=== PATIENT | male | born 1970 | race Caucasian/White ===

== ENCOUNTER 2021-05-09 10:19 | Emergency (ER) | payer OTHER, SELFPAY ==
--- NOTE | ~2021-05-09 | XR_ITS ---
EXAMINATION: XR chest 2V EXAM DATE: 05/09/2021 10:45 INDICATION: Cough x 1 mo, fever last P.M. TECHNIQUE: Frontal and lateral projections of the chest obtained and reviewed. There is no prior colleen dy for comparison. FINDINGS: The lungs are clear. There are no pleural effusions. The cardiomediastinal silhouette is within normal limits. There is no pneumothorax suspected. The bones and soft tissues are unremarkab le. IMPRESSION: No acute cardiopulmonary findings. Reviewed, dictated and finalized at location A. HIC TECHNICIAN
[2021-05-09 10:24] VITALS: BP 121/69; PULSE 132; RESP 16; TEMP 37.6; O2SAT 98
--- NOTE | 2021-05-09 10:29 | ED.URI ---
HPI - URI/Sore Throat General Chief Complaint: Upper Respiratory Infection Stated Complaint: Cough Source: patient Mode of arrival: ambulatory Limitations: no limitations History of Present Illness HPI Narrative: 50-year-old male presenting for complaint of nonproductive cough for 1 month. He endorses new onset of fever last night of 101. Denies cp, shortness of breath, wheezing, fatigue, body aches, nausea, vomiting, diarrhea. Has been taking Mucinex for symptoms. He did receive the [employer] [place] COVID-vaccine in 2019. He has not had a booster. Denies sick contacts. MD elicited complaint: cough Related Data Allergies Allergy/AdvReac Type Severity Reaction Status Date / Time prochlorperazine Allergy Severe Muscle Verified 04/12/20 13:29 [From Compazine] Spasms clindamycin Allergy Mild Rash Verified 04/12/20 13:29 Review of Systems Review of Systems: CONSTITUTIONAL: Endorses Fever, Denies malaise, chills, sweats EYES: Denies visual changes, redness, or discharge. ENT: Reports rhinorrhea, congestion, sinus pain denies otalgia and sore throat. CARDIOVASCULAR: Denies chest pain, palpitations, or edema. RESPIRATORY: Reports cough, post nasal drainage. Denies dyspnea. GASTROINTESTINAL: Denies abdominal pain, nausea, vomiting, diarrhea SKIN: Denies rash or itching. MUSCULOSKELETAL: Denies myalgia. NEUROLOGIC: Denies headache. [facility] Past Medical History Medical History Chronic sinusitis, unspecified Closed right hand fracture History of MRSA infection Hypogonadism Kidney stones Long-term current use of testosterone replacement therapy Surgical History Surgical History H/O arthroscopy of shoulder Hx of hand surgery Hx of tonsillectomy Family History Family History Mother Patient's mother is in good health Father Agent orange exposure Social History Social History Smoking status: Never smoker Alcohol intake: current Alcohol use details: occasionally Substance use: never Gender identity (if verbalized by the patient): Male Exam Narrative: GENERAL: Ill-appearing, nontoxic no acute distress. HEAD: Normocephalic EYES: PERRLA, conjunctivae clear ENT: Mucous membranes moist. TM pearly ordonez with dull light reflex bilaterally; no tragal tenderness. Oropharynx erythematous without lesions. Tonsils enlarged and without exudate, no drooling, no hoarseness, no trismus, uvula midline. NECK: Supple. No lymphadenopathy CHEST: Clear to auscultation, breath sounds equal. No wheezing, rhonchi, rales, or stridor. No respiratory distress, speaks in full sentences. HEART: Regular rate and rhythm. No murmur heard. SKIN: Warm, dry, no rash. NEURO: Alert and oriented x3. PSYCH: Normal mood and affect Course Course Emergency Course: PCR ordered Patient is aware of diagnosis, understands and agrees to treatment plan. Anticipatory guidance given. Patient agrees to follow-up as directed and is aware of reasons to seek care at the emergency department. Portions of this record may have been created with voice recognition software Level of Care: Express Care Visit Vital Signs Vital signs: Vital Signs Temperature 99.6 F 05/09/21 10:24 Pulse Rate 132 H 05/09/21 10:24 Respiratory Rate 16 05/09/21 10:24 Blood Pressure 121/69 05/09/21 10:24 Pulse Oximetry 98 05/09/21 10:24 Temperature 99.6 F 05/09/21 10:24 Pulse Rate 132 H 05/09/21 10:24 Respiratory Rate 16 05/09/21 10:24 Blood Pressure 121/69 05/09/21 10:24 Pulse Oximetry 98 05/09/21 10:24 MDM - URI/Sore Throat Differential Diagnosis Differential diagnosis: Likely upper respiratory infection and viral infection Imaging Data Attestation: I personally reviewed and interpreted this imaging study as follow
[2021-05-10 21:18] LABS: SARS-CoV-2 RNA PCR Positive
== END 2021-05-09 11:17 | disposition home or self-care (01) ==
PROVIDERS: Emergency Provider Nurse Practitioner Family; PCP Internal Medicine
DX: U07.1 COVID-19 (principal)
CPT/HCPCS: 71046; 99213; C9803; G0463; U0003; U0005

== ENCOUNTER 2022-06-07 08:26 | Outpatient (CLI) | payer OTHER, SELFPAY ==
[2022-06-08 08:59] LABS: Kit Draw Collected
== END 2022-06-07 08:27 | disposition home or self-care (01) ==
LOC: ANHGOSHLAB 08:27
PROVIDERS: PCP Internal Medicine; Visit Provider Nurse Practitioner
DX: Z12.5 Encounter for screening for malignant neoplasm of prostate (principal); Z13.228 Encounter for screening for other metabolic disorders; Z79.890 Hormone replacement therapy
CPT/HCPCS: 36415

== ENCOUNTER 2022-09-21 08:45 | Outpatient (RCR) | payer OTHER, SELFPAY ==
[2022-07-05 12:30] VITALS: BP_SYST 155
--- NOTE | 2022-07-05 13:17 | PTOPEVAL1 ---
Assessment and note entered by Paulette Marks, PT Evaluation Information Assessment Status Evaluation Diagnosis L shoulder pain Onset Mar 2022 Subjective Information reports working out with bench press, pain onset; have not been doing any weight/resistance exercises; have been using arm on eccliptical; have been doing some exercises for shoulder- active and stretching; no imaging done, insurance will not cover MRI until after has had therapy; Reported Pain Level Pain Score Self Report Additional Pain Score Comments pain range in past week of 5-9/10; hurts in shoulder; increase with lifting, raising arm, lie on L side; decrease with rest, tylenol PRN; awaken 2x/night due to shoulder pain have not used ice, discussed use PRN; Assessment PT Clinical Summary Harjinder has the diagnosis of L shoulder pain. He reports onset with doing bench press weights in Mar, pain continues since then. He has been resting his arm, no longer doing resisted exercises. He has history of R shoulder arthroscopy. The pain increases with lifting L arm up and lie on L side with sleeping, awakens him. With the evaluation, he has decreased strength of R shoulder flexion and abduction motions, with increased pain and pain with horizontal adduction also. He does have full passive ROM of shoulder. There is tenderness and spasms over upper traps and scapular areas. Posture is with rounded shoulders and increased bulk over anterior shoulders. Skilled PT services are indicated for treatment of L shoulder impingement syndrome: modalities to decrease pain and muscle spasms, therapeutic exercises to increase active ROM and strength of shoulder and education for posture and home exercise program. Plan of Care Interventions Electrical Stimulation,Hot Pack/Cold Pack,Manual Therapy,Neuro Re-education,Patient/Caregiver Education,Therapeutic Activities,Therapeutic Exercise,Ultrasound,Other Other Interventions taping PT Services Indicated Yes Treatment Frequency and 1x/wk for 5 weeks Duration These treatments will address the objective and functional deficits as defined above. The patient will be advanced safely and appropriately in order for the
--- NOTE | 2022-08-13 12:53 | PCPTNOTE ---
pt canceled today's reevaluation due to his work schedule.
--- NOTE | 2022-09-12 10:53 | PTOPPROG ---
Assessment and note entered by Maxim Guerra, PT Evaluation Information Assessment Status Progress Diagnosis Pain in L shoulder Onset Mar 2022 Subjective Information Patient reports he is doing more and is being faithful with his HEP, but is not back to where he wants to be. The shoulder is still waking him up at night and unable to do much lifting. Assessment PT Clinical Summary Harjinder is a 51 year old patient coming into the clinic with L shoulder pain. He was evaluated on July 05, 2022. He has attended 5 visits. Patient has increased range f motion from 120 for flexion and abduction to 140 flexion and 170 degrees abduction. Patient still dealing with pain and not back to working out like he would like. Recommend continued physical therapy to work on progressing back to a gym routine he can do without increased pain. Plan of Care Interventions Electrical Stimulation,Gait Training,Hot Pack/Cold Pack,Manual Therapy,Neuro Re-education,Patient/ Caregiver Education,Therapeutic Activities, Therapeutic Exercise,Ultrasound Other Interventions cupping, taping, IASTM PT Services Indicated Yes Treatment Frequency and 1-2x/wk for 4 weeks Duration These treatments will address the objective and functional deficits as defined above. The patient will be advanced safely and appropriately in order for the patient to progress towards his/her prior level of function. Additional exercises will be introduced and as well as a comprehensive home exercise program upon discharge, if needed, ?to ensure carryover of functional gains achieved in the clinic. This treatment plan has been reviewed and agreement upon by the patient.
== END 2022-09-28 13:28 | disposition home or self-care (01) ==
LOC: ANHPT 08:45
PROVIDERS: PCP Internal Medicine; Visit Provider Clinical Nurse Specialist
DX: M25.519 Pain in unspecified shoulder (principal)
CPT/HCPCS: 97014; 97110; 97112; 97140; 97161; 97530; G0283

== ENCOUNTER 2022-10-11 09:00 | Outpatient (RCR) | payer OTHER, SELFPAY ==
[2022-09-28 13:28] VITALS: BP_SYST 155
--- NOTE | 2022-10-11 10:48 | PTOPDC ---
Assessment and note entered by Maxim Guerra, PT Evaluation Information Assessment Status Discharge Diagnosis L shoulder pain Onset Mar 2022 Subjective Information Patient reports pain is a lot better able to sleep on the L side without waking up more than a couple times a night and only having pain with end range shoulder flexion. Patient interested in getting an MRI and possibly talking to Dr. Guerrero, his surgeon for the R shoulder surgery. Reported Pain Level Pain Score 4: Self Report Assessment PT Clinical Summary Harjinder is a 52 year old male coming into the clinic with a diagnosis of L shoulder pain. Patient has made good improvement meeting his strength and range of motion goals, but still having pain. Recommend discharge from physical therapy and have referral for orthopedic services along with MRI. Plan of Care PT Services Indicated No
== END 2022-10-11 14:20 | disposition home or self-care (01) ==
LOC: ANHPT 09:00
PROVIDERS: PCP Internal Medicine; Visit Provider Clinical Nurse Specialist
DX: M25.519 Pain in unspecified shoulder (principal)
CPT/HCPCS: 97110; 97112; 97530

== ENCOUNTER 2022-12-26 08:50 | Outpatient (CLI) | payer OTHER, SELFPAY ==
[2022-12-26 18:37] LABS: Basophils Absolute Auto 0.1 K/mm3 (0.0-0.1); Basophils Percent Auto 0.7 % (0.2-1.2); Eosinophils Absolute Auto 0.1 K/mm3 (0-0.3); Eosinophils Percent Auto 1.9 % (0-4.4); Hematocrit 53.7 % (42.0-52.0); Hemoglobin 17.9 g/dL (14.0-18.0); Immature Granulocyte Absolute 0.03 K/mm3 (0.00-0.031); Immature Granulocyte Percent A 0.4 % (0-0.5); Lymphocytes Percent Auto 29.2 % (18.3-44.2); Mean Corpuscular HGB Conc 33.3 g/dl (32-36); Mean Corpuscular Hemoglobin 34.3 pg (26-34); Mean Corpuscular Volume 102.9 fl (80-100); Mean Platelet Volume 11.2 fl (7.4-10.4); Monocytes Absolute Auto 0.6 K/mm3 (0.1-0.6); Monocytes Percent Auto 8.9 % (2.6-8.5); Neutrophils Percent Auto 58.9 % (45.5-73.1); Platelet Count Result 201 k/mm3 (150-375); Red Blood Count 5.22 M/mm3 (4.6-6.20); Red Cell Distribution Width 13.1 % (11.5-14.5); White Blood Count 6.9 K/mm3 (4.5-10.0)
[2022-12-26 19:53] LABS: Alanine Aminotransferase 28 U/L (6-50); Albumin Level 4.3 g/dL (3.5-5.1); Alkaline Phosphatase 36 U/L (38-126); Anion Gap 10 mmol/L (8-16); Aspartate Amino Transferase 34 U/L (17-59); Bilirubin,Total 0.7 mg/dL (0.2-1.3); Blood Urea Nitrogen 13 mg/dL (9-20); Calcium 8.9 mg/dL (8.4-10.2); Carbon Dioxide 29 mmol/L (22-30); Chloride 98 mmol/L (98-107); Cholesterol 230 mg/dL (0-200); Estimated Glomerular Filt Rate > 60; Glucose 88 mg/dL (65-110); HDL Direct 55 mg/dL; Potassium 4.5 mmol/L (3.4-5.0); Sodium 137 mmol/L (137-145); Triglycerides 118 mg/dL (<150)
[2022-12-26 20:04] LABS: LDL Cholesterol Direct 135 mg/dL
[2022-12-29 16:48] LABS: Testosterone Free 465.4 pg/mL (35.0-155.0); Testosterone Total 1633 ng/dL (250-1100)
[2023-01-03 22:06] LABS: Estradiol, Ultrasensitive 75 pg/mL (< OR = 29)
== END 2022-12-26 08:51 | disposition home or self-care (01) ==
LOC: ANHGOSHLAB 08:52
PROVIDERS: PCP Internal Medicine; Visit Provider Nurse Practitioner
DX: Z51.81 Encounter for therapeutic drug level monitoring (principal); Z79.890 Hormone replacement therapy
CPT/HCPCS: 36415; 80053; 80061; 82670; 84402; 84403; 85025

== ENCOUNTER 2023-08-30 08:49 | Outpatient (CLI) | payer OTHER, SELFPAY ==
[2023-09-10 18:00] VITALS: BMI 29.3
--- NOTE | 2023-09-10 18:00 | WPDHOMESLEEP ---
Sleep Study - Home Unattended Date of Study: 08/30/23 Ordering Provider: Neno Hein DO Interpreting Provider: Phuong Alvarenga DO Home Sleep Study Type: Watch PAT Height: 1.68 m Weight: 82.554 kg Body Mass Index: 29.3 Neck Circumference (inches): 15.5 Pepin: 10 Reason for Sleep Study Daytime hypersomnia Sleep History The patient is a 52-year-old male with hypogonadism all and benign prostatic hyperplasia that had a sleep study ordered by his primary care physician for evaluation of sleep apnea. The patient frequently awakens from sleep short of breath. He occasionally awakens at night with coughing. He constantly snores loudly enough that others complain. He occasionally has trouble sleeping when he has a cold. He occasionally wakes up gasping for air throughout the night. He frequently has breathing problems at night observed by himself or others. He frequently sweats excessively at night. He denies having heart palpitations or irregular heartbeats during the night. He rarely falls asleep during the day but never while driving. He denies sleep paralysis, cataplexy and hypnagogic / hypnopompic hallucinations. He denies having trouble at school or work due to sleepiness. He denies feeling afraid of going to sleep. He occasionally has nightmares. Occasionally remembers his dreams. He occasionally has thoughts racing through his mind. He denies feeling sad, depressed or anxious. He denies having muscular tension. He frequently notices parts of his body jerk. He frequently kicks during the night. He occasionally has crawling and aching feelings in his legs and occasionally has leg pain during the night. He constantly grinds his teeth during sleep but never awakens with morning jaw pain. He is rarely bothered by pain during the day but never awakened by pain during the night. He occasionally wakes up feeling stiff in the morning. He rarely wakes up with sore or achy muscles. He occasionally wakes up with pain in the neck, spine and other joints. He goes to bed at 9:00 p.m. weekdays. He goes to bed 11:00 p.m. on weekends. It takes him less than 20 minutes to fall asleep. He wakes up twice throughout the night to urinate and is able to fall back asleep within 10 minutes. He wakes up at 5:00 a.m. on both weekdays and weekends. He typically gets 5 hours of sleep per night. He does not stay in bed longer than 5 minutes after waking up in the morning. He currently lives with his and adult son. He denies consuming any caffeinated beverages within 2 hours. He denies engaging in physical exercise before bedtime. He will watch television before falling asleep. He denies taking naps in the afternoon or the evening. He consumes 4 caffeinated beverages per day. He consumes 2 alcoholic beverages per day. He denies tobacco recreational drug use. [facility] Past Medical History Medical History Chronic sinusitis, unspecified Closed right hand fracture History of MRSA infection Hyperlipidemia Hypogonadism Kidney stones Long-term current use of testosterone replacement therapy Surgical History Surgical History H/O arthroscopy of shoulder Hx of hand surgery 2019 Hx of tonsillectomy Family History Family History Mother Patient's mother is in good health Father Agent orange exposure Social History Social History Smoking status: Never smoker Alcohol intake: current Alcohol use details: occasionally Substance use: never Do You Feel Safe in your Home?: Yes Lack of Transportation: No Lack of Food: Never True Current Housing: I Have Housing Concerned About Future Housing: No Difficulty Paying Gas/Electric Bills: No Difficulty Paying for Meds: No Currently Unempl
== END 2023-09-02 09:40 | disposition home or self-care (01) ==
LOC: ANHCSM 08:49
PROVIDERS: PCP Internal Medicine; Visit Provider Internal Medicine
DX: G47.30 Sleep apnea, unspecified (principal); G47.19 Other hypersomnia
CPT/HCPCS: 95800

== ENCOUNTER 2024-03-18 14:42 | Outpatient (CLI) | payer OTHER, SELFPAY ==
--- NOTE | 2024-03-18 14:54 | ECHO_ITS ---
Patient Info Name: Samuel Bains Age: 53 years : 1970 Gender: Male Ht: 67 in Wt: 185 lbs BSA: 2.01 m2 HR: 73 bpm BP: 155 / 92 mmHg Heart Rhythm: Sinus Rhythm Technical Quality: Good Exam Date: 03/18/2024 3:13 PM Exam Location: Echo Lab Patient Status: Outpatient Admit Date: 03/18/2024 Staff Ordering Physician: Neno Hein DO Machine Feeder Floorperson: Lloyd Owusu RDCS Attending Provider: Neno Hein DO Referring Physician: Melvina DEWITT; Exam Type: CA echo doppler color flow Study Info Indications - abn ekg Complete two-dimensional, color flow and Doppler transthoracic echocardiogram is performed. Summary 1. Complete two-dimensional, color flow and Doppler transthoracic echocardiogram is performed. 2. Left ventricular chamber dimension is normal. 3. Left ventricular systolic function is normal, estimated at 65-70%. 4. The left ventricular diastolic function is normal. 5. E/e' 8 is minimally elevated. 6. Left atrial chamber dimension is mildly enlarged. 7. There is trace mitral valve regurgitation. 8. No pulmonary hypertension, estimated pulmonary arterial systolic pressure is 16 mmHg. 9. There is trace pulmonic regurgitation. Left Ventricle E/e' 8 is minimally elevated. Left ventricular chamber dimension is normal. Left ventricular systolic function is normal, estimated at 65-70%. The left ventricular diastolic function is normal. Right Ventricle Right ventricular systolic function is normal and with normal TAPSE 2.5 cm. Right ventricular chamber dimension is normal. Left Atria Left atrial chamber dimension is mildly enlarged. Right Atria Right atrial chamber dimension is normal. Aortic Valve The aortic valve is trileaflet. There is no aortic valve stenosis. There is no aortic valve regurgitation. Pulmonic Valve There is trace pulmonic regurgitation. Mitral Valve There is no mitral valve stenosis. There is trace mitral valve regurgitation. Tricuspid Valve There is no tricuspid valve regurgitation. No pulmonary hypertension, estimated pulmonary arterial systolic pressure is 16 mmHg. Pericardium/Pleural There is no pericardial effusion. Inferior Vena Cava Normal inferior vena cava with >50% collapse upon inspiration consistent with normal right atrial pressure, 5 mmHg. Aorta The aortic root size at the sinus of Valsalva is normal. Left Ventricular Outflow Tract Name Value Normal LVOT 2D LVOT Diameter 2.2 cm LVOT Doppler LVOT Peak Gradient 4 mmHg LVOT Mean Gradient 3 mmHg LVOT VTI 24 cm LVOT VTI/AV VTI Ratio 0.9 LVOT Stroke Volume 96 ml LVOT CO 5.9 l/min LVOT CI 2.9 l/min/m2 Pulmonic Valve Name Value Normal PV Doppler PV Peak Gradient 3 mmHg PV Regurgitation Doppler CA Peak End Diastolic Velocity 90 cm/s Mitral Valve Name Value Normal MV Doppler MV Decel [place] 363 cm/s2 MV PHT 61 ms MV Area (PHT) 3.6 cm2 4.0-5.0 MV Regurgitation Doppler MR Peak Gradient 35 mmHg MV Diastolic Function MV E Peak Velocity 77 cm/s MV A Peak Velocity 61 cm/s MV E/A 1.3 MV Decel Time 211 ms MV Annular TDI MV E/e' (Septal) 10.9 <=8.0 MV E/e' (Lateral) 6.9 <=8.0 MV E/e' (Average) 8.9 Tricuspid Valve Name Value Normal TV Regurgitation Doppler TR Peak Velocity 168 cm/s TR Peak Gradient 11 mmHg Estimated PAP/RSVP RA Pressure 5 mmHg <=5 PA Systolic Pressure 16 mmHg <36 RV Systolic Pressure 16 mmHg <36 Aortic Valve Name Value Normal AV Doppler AV Peak Velocity 123 cm/s AV Peak Gradient 6 mmHg AV Mean Gradient 4 mmHg AV VTI 27 cm AV Area (Cont Eq VTI) 3.6 cm2 >=3.0 AV Area (Cont Eq Fco) 3.3 cm2 AV Regurgitation 2D LVOT Area 3.9 cm2 AV Regurgitation Doppler AR Decel Time 13,260 ms AR Decel Hur[place] 16 cm/s2 AR PHT 3,845 ms Ventricles Name Value Normal LV Dimensions 2D/MM IVS Diastolic Thickness (2D) 0.9 cm 0.6-1.0 LVID Diastole (2D) 5.0 cm 4.2-5.8 LVIW Diastolic Thickness (2D) 0.8 cm 0.6-1.0 LVID Systole (2D) 3.1 cm 2.5-4.0 LVOT Diameter 2.2 cm LV Mass (2D Cubed) 139.23 g 88.00-224.00 LV Mass Index (2D Cubed) 69 g/m2 49-115 Relative Wall Thickness (2D) 0.31 LV Fractional Shortening/Ejection Fraction 2D/MM LV Fractional Shortening (2D) 37 % 25-43 LV EF (2D Teicholz) 67 % 52-72 LV Diastolic Volume (4C MOD) 76 ml LV EF (4C MOD) 67 % LV Diastolic Volume (2C MOD) 96 ml LV EF (2C MOD) 67 % LV Diastolic Volume (BP MOD) 91 ml 62-150 LV Diastolic Volume Index (BP MOD) 45 ml/m2 34-74 LV Systolic Volume (BP MOD) 31 ml 21-61 LV Systolic Volume Index (BP MOD) 15 ml/m2 11-31 LV EF (BP MOD) 66 % 52-72 LV Diastolic Length (4C) 7.7 cm LV Systolic Length (4C) 5.8 cm LV Stroke Volume (4C MOD) 51 ml Atria Name Value Normal LA Dimensions LA Volume (4C A-L) 43 ml LA Volume (BP A-L) 48 ml RA Dimensions RA Area (4C) 13.8 cm2 <=18.0 Report Signatures
== END 2024-03-18 14:43 | disposition home or self-care (01) ==
PROVIDERS: PCP Internal Medicine; Visit Provider Internal Medicine
DX: R94.31 Abnormal electrocardiogram [ECG] [EKG] (principal)
CPT/HCPCS: 93306

== ENCOUNTER 2024-11-16 12:50 | Outpatient (CLI) | payer OTHER, SELFPAY ==
--- NOTE | ~2024-11-16 | XR_ITS ---
EXAM/ PROCEDURE: XR elbow LT 2V - 11/16/2024 12:57 CDT HISTORY: 54 years old Male with M77.12 - Lateral epicondylitis, left elbow COMPARISON: None available TECHNIQUE: Two view(s) FINDINGS/ IMPRESSION: There are no fractures or dislocations.Joint spaces are within normal limits. Reviewed, dictated and finalized at location A.
== END 2024-11-16 12:51 | disposition home or self-care (01) ==
LOC: MICIMG 12:51
PROVIDERS: PCP Internal Medicine; Visit Provider Physician Assistant Surgical
DX: M77.12 Lateral epicondylitis, left elbow (principal)
CPT/HCPCS: 73070